=== PATIENT | female | born 1980 | race Two or more races ===

== ENCOUNTER 2016-11-01 15:47 | Emergency (ER) | payer BC, OTHER ==
--- NOTE | ~2016-11-01 | CT4 ---
[facility] A Service of [facility] RADIOLOGY TEXT RESULTS PATIENT: TWIN QUINTEROS LOCATION: SED : 82 UNIT #: [id number] AGE: [address]: Javon Mccann MD SEX: F ORDER DR: [id number] [place] [address] [id number] E MR#: [id number] Acc #: [id number] NAME: TWIN QUINTEROS : 1980 SEX: F STUDY DATE/TIME: 11/01/2016 17:23 UNIT: SED ROOM: STUDY DESCRIPTION: CT Abd and Pelv Wo Cont Attending Physician: Javon Mccann M.D. Ordering Physician: Javon Mccann M.D. Primary Care Physician: Sandra Plascencia A.P.R.N. MEDICAL IMAGING REPORT This report is preliminary unless electronic signature is present. EXAM CT abdomen and pelvis without contrast, 11/01/2016 INDICATION Lower abdominal pain for the past [address] of the abdomen and pelvis. This CT exam was performed with one or more of the following radiation dose reduction techniques: automatic exposure control, adjustment of mA and/or kV according to patient size, and iterative reconstruction. COMPARISON 05/20/2014 FINDINGS ABDOMEN WITHOUT CONTRAST: Included lung bases are clear. Liver, spleen, kidneys, adrenal glands, pancreas, gallbladder have an unremarkable unenhanced appearance. The bowel loops are nondilated, appendix is normal. No abdominal fluid collection. There is nonspecific fullness in the lower left adnexa. No radiodense bladder calculus. No aggressive-appearing bone lesion. IMPRESSION 1. Nonspecific fullness in the lower left adnexa. Could represent an underlying adnexal cyst or some fluid in the left adnexa. This would be better evaluated with a pelvic ultrasound if desired clinically. 2. Otherwise there is no acute finding in the abdomen or pelvis. [facility] A Service of [facility] RADIOLOGY TEXT RESULTS PATIENT: TWIN QUINTEROS LOCATION: SED : [birth year] UNIT #: [id number] AGE: [address]: Javon Mccann MD SEX: F ORDER DR: Dictated by... Radames Alfonso M.D. THIS IS AN ELECTRONICALLY VERIFIED REPORT Radames Alfonso M.D. at 11/03/2016 6:59 AM TAMEKA/dawn TD: 11/01/2016 23:53 JOB #: [id number] MEDICAL IMAGING REPORT
[~2016-11-01 15:47] MED LIST: ACETAMINOPHEN PO; CIPRO PO; FLAGYL PO; PHENERGAN PO; PRENATAL MULITV1 TAB PO; [UNRECOGNIZED DRUG - CODE]; [UNRECOGNIZED DRUG - REMARK]
[2016-11-01 16:23] LABS: BASOPHIL# 0.1 X10e3 (0-0.3); BASOPHIL% 0.7 % (0-2.5); EOSINOPHIL# 0.2 X10e3 (0-0.7); EOSINOPHIL% 1.7 % (0.0-7.0); HEMATOCRIT 38.8 % (35.0-45.0); HEMOGLOBIN 12.5 gm/dL (12.0-16.0); LYMPHOCYTE# 2.8 X10e3 (1.0-3.5); LYMPHOCYTE% 25.5 % (17.0-45.0); MEAN CELL VOLUME 78.6 FL (83-96); MEAN CORPUSCULAR HEMOGLOBIN 25.4 PG (28-34); MEAN CORPUSCULAR HGB CONC 32.3 g/dL (30-36); MEAN PLATELET VOLUME 6.5 FL (6.5-11.5); MONOCYTE# 0.7 X10e3 (0-1.0); MONOCYTE% 6.3 % (3.0-12.0); NEUTROPHIL# 7.1 X10e3 (1.5-7.1); NEUTROPHIL% 65.8 % (40-75); PLATELET COUNT 374 X10e3 (140-420); RED BLOOD COUNT 4.93 X10e (3.90-5.30); RED CELL DISTRIBUTION WIDTH 14.1 % (11.0-15.5); WHITE BLOOD COUNT 10.8 X10e3 (4.0-10.5)
[2016-11-01 16:25] LABS: DIFF IND NO; URINE SOURCE CLEAN CATCH
[2016-11-01 16:33] LABS: URINE APPEARANCE CLEAR; URINE BILIRUBIN NEG (NEG); URINE BLOOD NEG (NEG); URINE COLOR YELLOW; URINE GLUCOSE NEG (NORM); URINE KETONE NEG (NEG); URINE LEUKOCYTE ESTERASE TRACE (NEG); URINE NITRATE NEG (NEG); URINE PH 5.5 (5-8); URINE PROTEIN NEG (NEG); URINE SPECIFIC GRAVITY 1.025 (1.003-1.035); URINE UROBILINOGEN 0.2 MG/DL (NORM)
[2016-11-01 16:34] LABS: MICRO INDICATED? YES
[2016-11-01 16:40] LABS: URINE RBC 0-2 /[HPF] (0-2)
[2016-11-01 16:41] LABS: CULTURE INDICATED? NO; URINE BACTERIA NEG (NEG); URINE MUCUS PRESENT; URINE SPERM PRESENT; URINE SQUAMOUS EPITHELIAL CELL MODERATE /[HPF]; URINE YEAST PRESENT
[2016-11-01 16:42] LABS: ALBUMIN SERUM 3.5 g/dL (3.5-5.0); ALKALINE PHOSPHATASE 80 U/L (32-92); ALT (SGPT) 25 U/L (10-40); AMYLASE 29 U/L (0-46); AST (SGOT) 22 U/L (10-42); BILIRUBIN,TOTAL 0.4 mg/dL (0.2-2.0); BLOOD UREA NITROGEN 17 mg/dL (9-23); CARBON DIOXIDE 25 mmol/L (22-31); CHLORIDE 103 mmol/L (100-111); CREATININE SERUM 0.4 mg/dL (0.6-1.4); GLOM FILT RATE Estimated ABOVE60 mL/min (>60); GLUCOSE FASTING 147 mg/dL (70-110); LIPASE 57 U/L (22-51); POTASSIUM 3.7 mmol/L (3.5-5.1); SODIUM 138 mmol/L (135-145)
[2016-11-01 16:44] LABS: BILIRUBIN, DIRECT <0.1 mg/dL (0.0-0.2); BILIRUBIN,INDIRECT 0.3 mg/dL (0.0-0.9)
== END 2016-11-01 18:56 | disposition home or self-care (01) ==
LOC: SED 15:47
PROVIDERS: Emergency Medicine
DX: N30.00 Acute cystitis without hematuria (principal); N83.202 Unspecified ovarian cyst, left side; I10 Essential (primary) hypertension; F17.210 Nicotine dependence, cigarettes, uncomplicated
CPT/HCPCS: 36415; 74176; 80048; 80076; 81003; 82150; 83690; 84703; 85025; 96374; 96375; 99284; J2270; J2405

== ENCOUNTER 2017-01-10 23:13 | Emergency (ER) | payer BC, OTHER ==
[2017-01-10] MEDS ORDERED: PROPYLTHIOURACIL (23:23)
== END 2017-01-11 00:17 | disposition home or self-care (01) ==
LOC: SED 23:13
DX: L02.211 Cutaneous abscess of abdominal wall (principal); L03.311 Cellulitis of abdominal wall; E05.90 Thyrotoxicosis, unspecified without thyrotoxic crisis or storm; F17.200 Nicotine dependence, unspecified, uncomplicated
CPT/HCPCS: 10060; 87070; 87205; 99283

== ENCOUNTER 2017-01-13 20:47 | Emergency (ER) | payer BC ==
[~2017-01-13 20:47] MED LIST changes: +PROPYLTHIOURACIL
== END 2017-01-13 21:48 | disposition home or self-care (01) ==
LOC: SED 20:47
DX: L02.211 Cutaneous abscess of abdominal wall (principal); F41.9 Anxiety disorder, unspecified; E05.90 Thyrotoxicosis, unspecified without thyrotoxic crisis or storm; F17.200 Nicotine dependence, unspecified, uncomplicated
CPT/HCPCS: 99281

== ENCOUNTER 2017-04-06 11:04 | Emergency (ER) | payer BC ==
[~2017-04-06] VITALS: Ht 147.3 cm; Wt 84.8 kg
--- NOTE | ~2017-04-06 | EKG ---
PATIENT: TWIN QUINTEROS UNIT #: [id number] Ventricular Rate: 95 BPM Atrial Rate: 95 BPM P-R Interval: 134 ms QRS Duration: 82 ms Q-T Interval: 350 ms QTC Calculation(Bezet): 439 ms P [place]: 15 degrees Calculated R [place]: 70 degrees Calculated T [place]: 54 degrees Diagnosis Line: Normal sinus rhythm Diagnosis Line: Normal ECG Diagnosis Line: No previous ECGs available Diagnosis Line: Confirmed by BRENDA LAMBERT MD ([id number]) on Diagnosis Line: 04/06/2017 3:33:09 PM INTERPRETING MD: KALEB
[2017-04-06 11:32] LABS: BASOPHIL% 0.3 % (0-2.5); EOSINOPHIL# 0.1 X10e3 (0-0.7); EOSINOPHIL% 1.6 % (0.0-7.0); HEMATOCRIT 37.4 % (35.0-45.0); HEMOGLOBIN 12.8 gm/dL (12.0-16.0); LYMPHOCYTE# 2.1 X10e3 (1.0-3.5); LYMPHOCYTE% 25.1 % (17.0-45.0); MEAN CELL VOLUME 74.8 FL (83-96); MEAN CORPUSCULAR HEMOGLOBIN 25.5 PG (28-34); MEAN CORPUSCULAR HGB CONC 34.1 g/dL (30-36); MEAN PLATELET VOLUME 6.6 FL (6.5-11.5); MONOCYTE# 0.7 X10e3 (0-1.0); MONOCYTE% 7.8 % (3.0-12.0); NEUTROPHIL# 5.5 X10e3 (1.5-7.1); NEUTROPHIL% 65.2 % (40-75); PLATELET COUNT 358 X10e3 (140-420); RED CELL DISTRIBUTION WIDTH 13.9 % (11.0-15.5); WHITE BLOOD COUNT 8.4 X10e3 (4.0-10.5)
[2017-04-06 11:34] LABS: DIFF IND NO
[2017-04-06 12:08] LABS: ALBUMIN SERUM 3.7 g/dL (3.5-5.0); BILIRUBIN, DIRECT 0.1 mg/dL (0.0-0.2); BILIRUBIN,INDIRECT 0.2 mg/dL (0.0-0.9); BILIRUBIN,TOTAL 0.3 mg/dL (0.2-2.0); CALCIUM SERUM 9.3 mg/dL (8.4-10.2); CREATININE SERUM 0.5 mg/dL (0.6-1.4); GLOM FILT RATE Estimated 125.4 mL/min (>60); POTASSIUM 3.7 mmol/L (3.5-5.1); PROTEIN TOTAL SERUM 7.7 g/dL (6.0-8.3)
[2017-04-06 12:12] LABS: POC - CKMB <1.0 ng/mL (0.0-7.9); POC - TROPONIN <0.05 ng/mL (<=0.05)
[2017-04-06 12:38] LABS: THYROID STIMULATING HORMONE 0.06 uIU/ml (0.34-5.60)
[2017-04-06 12:45] LABS: FREE THYROXIN (T4) 2.51 ng/dL (0.58-1.64)
[2017-04-06 13:02] LABS: URINE SOURCE CLEAN CATCH
[2017-04-06 13:44] LABS: URINE APPEARANCE CLEAR; URINE BILIRUBIN NEG (NEG); URINE BLOOD NEG (NEG); URINE COLOR YELLOW; URINE GLUCOSE NEG (NEG); URINE KETONE NEG (NEG); URINE LEUKOCYTE ESTERASE 3+ (NEG); URINE NITRATE NEG (NEG); URINE PROTEIN NEG (NEG); URINE SPECIFIC GRAVITY 1.014 (1.003-1.035); URINE UROBILINOGEN 0.2 MG/DL (NEG)
[2017-04-06 13:50] LABS: CULTURE INDICATED? YES; URINE BACTERIA AUWI 1+ (NEGATIVE); URINE SQUAMOUS EPITHELIAL CELL FEW /[HPF]
[2017-04-06 14:10] LABS: POC - CKMB <1.0 ng/mL (0.0-7.9); POC - TROPONIN <0.05 ng/mL (<=0.05)
== END 2017-04-06 14:22 | disposition home or self-care (01) ==
LOC: CED 11:04
PROVIDERS: Emergency Medicine
DX: E05.80 Other thyrotoxicosis without thyrotoxic crisis or storm (principal); N30.00 Acute cystitis without hematuria; F17.210 Nicotine dependence, cigarettes, uncomplicated
CPT/HCPCS: 36415; 80048; 80076; 81003; 82553; 84439; 84443; 84484; 85025; 87086; 93005; 99285

== ENCOUNTER 2017-04-25 05:27 | Emergency (ER) | payer BC ==
[~2017-04-25] VITALS: Ht 147.3 cm; Wt 83.9 kg
--- NOTE | ~2017-04-25 | CR72 ---
[facility] A Service of [facility] RADIOLOGY TEXT RESULTS PATIENT: TWIN QUINTEROS LOCATION: [facility] : [birth year] UNIT #: [id number] AGE: [address]: Vu Ramos MD SEX: F ORDER DR: [id number] [facility] [address] [place], [place] [address] [id number] E MR#: [id number] Acc #: [id number] NAME: TWIN QUINTEROS : 1980 SEX: F STUDY DATE/TIME: 04/25/2017 6:02 UNIT: [facility] ROOM: STUDY DESCRIPTION: CR Chest Single View Portable Attending Physician: Vu Ramos M.D. Ordering Physician: Jayjay Lugo P.A.-C. Primary Care Physician: Sandra Plascencia A.P.R.N. MEDICAL IMAGING REPORT This report is preliminary unless electronic signature is present EXAM Portable chest 04/25/2017 HISTORY Right-side chest pain beginning today. Benign essential hypertension. FINDINGS A single AP portable view of the chest shows both lungs to be clear. The heart is normal in size. The mediastinal contour is normal. No significant bone abnormalities are seen. IMPRESSION Normal portable chest. Dictated by... Amos Wood M.D. THIS IS AN ELECTRONICALLY VERIFIED REPORT Amos Wood M.D. at 04/26/2017 6:33 AM KRT/to TD: 04/25/2017 14:32 JOB #: [id number] MEDICAL IMAGING REPORT Page 1 of 1 COPY
--- NOTE | ~2017-04-25 | CR230 ---
[facility] A Service of [facility] RADIOLOGY TEXT RESULTS PATIENT: TWIN QUINTEROS LOCATION: [facility] : 82 UNIT #: [id number] AGE: [address]: Vu Ramos MD SEX: F ORDER DR: [id number] [facility] [address] [place], [place] [address] [id number] E MR#: [id number] Acc #: [id number] NAME: TWIN QUINTEROS : 1980 SEX: F STUDY DATE/TIME: 04/25/2017 9:19 UNIT: [facility] ROOM: STUDY DESCRIPTION: CR Shoulder Min 2 View Rt Attending Physician: Vu Ramos M.D. Ordering Physician: Vu Ramos M.D. Primary Care Physician: Sandra Plascencia A.P.R.N. MEDICAL IMAGING REPORT This report is preliminary unless electronic signature is present EXAM Right shoulder 3 views 04/25/2017 HISTORY Right shoulder pain for 1 day with no known injury. FINDINGS Three views of the right shoulder demonstrate no fracture. There is a small curvilinear calcification near the insertion of the supraspinatus tendon on the humeral head which could reflect a degree of rotator cuff degeneration. Clinical correlation is recommended. If this is of clinical concern, consider non-emergent correlation with shoulder MRI. The bones are normally mineralized. The joint spaces are normally maintained. There is no soft tissue abnormality. IMPRESSION 1. No evidence of fracture. 2. Corticated curvilinear calcification located along the superolateral aspect of the right humeral head which could reflect a degree of rotator cuff degeneration. Clinical correlation is recommended. If this is of clinical concern, consider non-emergent correlation with shoulder MRI. Dictated by... Amos Wood M.D. THIS IS AN ELECTRONICALLY VERIFIED REPORT Amos Wood M.D. at 04/26/2017 6:36 AM ANASTACIA/ashley TD: 04/25/2017 15:01 JOB #: [id number] [facility] A Service of [facility] RADIOLOGY TEXT RESULTS PATIENT: TWIN QUINTEROS LOCATION: [facility] : [birth year] UNIT #: [id number] AGE: [address]: Vu Ramos MD SEX: F ORDER DR: MEDICAL IMAGING REPORT Page 1 of 1 COPY
--- NOTE | ~2017-04-25 | EKG ---
PATIENT: TWIN QUINTEROS UNIT #: [id number] Ventricular Rate: 105 BPM Atrial Rate: 105 BPM P-R Interval: 132 ms QRS Duration: 82 ms Q-T Interval: 348 ms QTC Calculation(Bezet): 459 ms P [place]: 9 degrees Calculated R [place]: 73 degrees Calculated T [place]: 54 degrees Diagnosis Line: Sinus tachycardia Diagnosis Line: Otherwise normal ECG Diagnosis Line: When compared with ECG of 06-APR-2017 11:46, Diagnosis Line: No significant change was found Diagnosis Line: Confirmed by ASHIA LEON MD ([id number]) on 04/26/2017 Diagnosis Line: 2:01:28 PM INTERPRETING MD: EDWARD TRAN
[2017-04-25 06:41] LABS: POC - CKMB 1.1 ng/mL (0.0-7.9); POC - TROPONIN <0.05 ng/mL (<=0.05)
[2017-04-25 07:16] LABS: BASOPHIL% 0.3 % (0-2.5); EOSINOPHIL# 0.1 X10e3 (0-0.7); EOSINOPHIL% 0.6 % (0.0-7.0); HEMATOCRIT 39.4 % (35.0-45.0); HEMOGLOBIN 13.1 gm/dL (12.0-16.0); LYMPHOCYTE# 2.3 X10e3 (1.0-3.5); LYMPHOCYTE% 19.8 % (17.0-45.0); MEAN CELL VOLUME 76.3 FL (83-96); MEAN CORPUSCULAR HEMOGLOBIN 25.4 PG (28-34); MEAN CORPUSCULAR HGB CONC 33.3 g/dL (30-36); MEAN PLATELET VOLUME 6.8 FL (6.5-11.5); MONOCYTE# 0.7 X10e3 (0-1.0); MONOCYTE% 6.3 % (3.0-12.0); NEUTROPHIL# 8.5 X10e3 (1.5-7.1); PLATELET COUNT 371 X10e3 (140-420); RED BLOOD COUNT 5.16 X10e (3.90-5.30); RED CELL DISTRIBUTION WIDTH 14.2 % (11.0-15.5); WHITE BLOOD COUNT 11.6 X10e3 (4.0-10.5)
[2017-04-25 07:19] LABS: DIFF IND NO
[2017-04-25 07:44] LABS: ALBUMIN SERUM 3.8 g/dL (3.5-5.0); BILIRUBIN, DIRECT 0.1 mg/dL (0.0-0.2); BILIRUBIN,INDIRECT 0.5 mg/dL (0.0-0.9); BILIRUBIN,TOTAL 0.6 mg/dL (0.2-2.0); BUN/CREATININE RATIO 37.5; CALCIUM SERUM 9.5 mg/dL (8.4-10.2); CREATININE SERUM 0.4 mg/dL (0.6-1.4); POTASSIUM 3.6 mmol/L (3.5-5.1); PROTEIN TOTAL SERUM 8.1 g/dL (6.0-8.3)
[2017-04-25 09:35] LABS: POC - CKMB <1.0 ng/mL (0.0-7.9); POC - TROPONIN <0.05 ng/mL (<=0.05)
== END 2017-04-25 11:25 | disposition home or self-care (01) ==
LOC: CED 05:27
PROVIDERS: Emergency Medicine; Physician Assistant
DX: S46.011A Strain of muscle(s) and tendon(s) of the rotator cuff of right shoulder, initial encounter (principal); F17.210 Nicotine dependence, cigarettes, uncomplicated; X50.0XXA Overexertion from strenuous movement or load, initial encounter
CPT/HCPCS: 36415; 71010; 73030; 80048; 80076; 82553; 84443; 84484; 84703; 85025; 85379; 93005; 96361; 96374; 96375; 96376; 99284; J2270; J2405